=== PATIENT | female | born 1995 | race Two or more races ===

== ENCOUNTER 2017-04-25 09:42 | Emergency (ER) | payer OTHER | END 2017-04-25 14:46 | disposition left against medical advice (07) | LOC: FTE 09:42 | DX: Z53.21 Procedure and treatment not carried out due to patient leaving prior to being seen by health care provider (principal) ==

== ENCOUNTER 2018-01-30 06:31 | Day surgery (SDC) | payer OTHER ==
[~2018-01-30 06:31] MED LIST: CEFAZOLIN 2 GM/50 ML (PMX) 50 ML IVPB; SOD CHLORIDE 0.9% 1,000 ML IV
[2018-01-30] MEDS ORDERED: LIDOCAINE 2% (SDV) 5 ML INJ (08:16)
[2018-01-30] MEDS ORDERED: PROPOFOL 20 ML (08:16)
[2018-01-30] MEDS ORDERED: METOCLOPRAMIDE 10 MG INJ (08:16)
[2018-01-30] MEDS ORDERED: CEFAZOLIN 1 GM INJ (08:16)
[2018-01-30] MEDS ORDERED: ONDANSETRON 4 MG INJ (08:16)
[2018-01-30] MEDS ORDERED: MEPERIDINE /PF (100 MG/2 ML) AMPULE (08:16)
[2018-01-30] MEDS ORDERED: OXYCODONE/ACETAMINOPHEN (5/325) TAB PO ×2 (08:30)
[2018-01-30] MEDS ORDERED: MIDAZOLAM 1 MG/ML 2 ML INJ IV (08:30)
[2018-01-30] MEDS ORDERED: METOCLOPRAMIDE 10 MG INJ IV (08:30)
[2018-01-30] MEDS ORDERED: ONDANSETRON 4 MG INJ IV (08:30)
[2018-01-30] MEDS ORDERED: DIPHENHYDRAMINE 50 MG INJ IV (08:30)
[2018-01-30] MEDS ORDERED: MEPERIDINE 25 MG INJ IV (08:30)
[2018-01-30] MEDS ORDERED: FENTAnyl 50 MCG/ML VIAL IV ×3 (08:30)
[2018-01-30] MEDS ORDERED: EPHEDrine SULFATE 50 MG/5 ML SYG (08:47)
[2018-01-30] MEDS ORDERED: HYDROCODONE/APAP (5/325) TAB PO (09:00)
[2018-01-30] MEDS: BUPIVACAINE 0.25% (MPF) 30 ML INJ (09:05)
== END 2018-01-30 10:48 | disposition home or self-care (01) ==
LOC: SDS 06:31
DX: L73.8 Other specified follicular disorders (principal)
CPT/HCPCS: 14301; 88307